=== PATIENT | male | born 2000 | race Two or more races ===

== ENCOUNTER 2019-04-01 15:42 | Emergency (ER) | payer BC ==
[~2019-04-01] VITALS: Ht 167.6 cm; Wt 102.5 kg
[2019-04-01 15:42] VITALS: BP 139/66
--- NOTE | 2019-04-01 17:19 | NUR ---
Patient discharged to home in stable condition. Written and verbal after care instructions given. Patient verbalizes understanding of instruction.
== END 2019-04-01 17:23 | disposition home or self-care (01) ==
LOC: ER 15:44
DX: T22.112A Burn of first degree of left forearm, initial encounter (principal); F12.10 Cannabis abuse, uncomplicated; V49.49XA Driver injured in collision with other motor vehicles in traffic accident, initial encounter; Y93.89 Activity, other specified; Y92.488 Other paved roadways as the place of occurrence of the external cause; Y99.8 Other external cause status
CPT/HCPCS: 99283; A6403